=== PATIENT | male | born 1950 | race Caucasian/White ===

== ENCOUNTER 2019-01-15 06:26 | Day surgery (SDC) | payer MEDICARE, BC ==
[2019-01-15] MEDS ORDERED: Propofol 10 mg/ml Inj (20 ML) ONE (07:47)
[2019-01-15] MEDS ORDERED: Lidocaine Hydrochloride 5 ML INJ ONE (07:48)
[2019-01-15 09:29] VITALS: BP 117/72; PULSE 75; RESP 19; TEMP 97.8; O2SAT 98
== END 2019-01-15 09:42 | disposition home or self-care (01) ==
LOC: C.ENDO 06:26
PROVIDERS: ATTEND Internal Medicine Gastroenterology
DX: Z12.11 Encounter for screening for malignant neoplasm of colon (principal); D12.3 Benign neoplasm of transverse colon; D12.8 Benign neoplasm of rectum; K64.1 Second degree hemorrhoids; K57.30 Diverticulosis of large intestine without perforation or abscess without bleeding; E78.00 Pure hypercholesterolemia, unspecified
CPT/HCPCS: 45380; 45385; 88305; J2704